=== PATIENT | male | born 1980 | race Caucasian/White ===

== ENCOUNTER 2024-12-05 23:40 | Emergency (ER) | payer BC, SELFPAY ==
--- NOTE | 2024-12-05 | ECG_ITS ---
Test Reason : L UPPER BACK PAIN Blood Pressure : */* mmHG Vent. Rate : 78 BPM Atrial Rate : 78 BPM P-R Int : 154 ms QRS Dur : 100 ms QT Int : 366 ms P-R-T Axes : 34 12 37 degrees QTcB Int : 417 ms Normal sinus rhythm Normal ECG No previous ECGs available Referred By: Generic ED Physician Electronically Signed By: KEL PEMBERTON
[2024-12-05 23:41] VITALS: BP 163/91; PULSE 86; RESP 18; TEMP 36.9; O2SAT 96; BMI 46.4
[2024-12-06 00:08] LABS: MANUAL DIFF FLAG NO
[2024-12-06 00:18] LABS: Basophils Absolute Auto 0.1 X10*3/uL (0.0-0.2); Basophils Percent Auto 0.9 % (0-2); Eosinophils Absolute Auto 0.7 X10*3/uL (0.0-0.4); Eosinophils Percent Auto 6.3 % (0-4); Hematocrit 48.1 % (42.0-52.0); Hemoglobin 16.1 g/dl (14.0-18.0); Imm Gran Abs Auto 0.07 X10*3/uL (0.00-0.03); Imm Gran Pct Auto 0.7 % (0.0-0.4); Lymphocytes Absolute Auto 3.3 X10*3/uL (1.2-4.9); Lymphocytes Percent Auto 31.7 % (20-40); Mean Corpuscular HGB Conc 33.5 g/dl (31.0-36.0); Mean Corpuscular Hemoglobin 28.1 pg (27.0-33.0); Mean Corpuscular Volume 84.1 fL (80.0-98.0); Mean Platelet Volume 11.3 fL (9.4-12.4); Monocytes Absolute Auto 0.8 X10*3/uL (0.1-1.2); Monocytes Percent Auto 7.5 % (2-11); Neutrophils Absolute Auto 5.5 x10*3/uL (2.0-8.3); Neutrophils Percent Auto 52.9 % (45-73); Platelet Count 223 X10*3/uL (160-400); Red Blood Count 5.72 X10*6/uL (4.60-5.80); Red Cell Distribution Width 14.4 % (11.0-16.0); White Blood Count 10.3 X10*3/uL (4.8-10.8)
[2024-12-06 00:25] LABS: Alanine Aminotransferase 43 U/L (0-40); Albumin Level 4.1 g/dL (3.5-5.0); Alkaline Phosphatase 74 U/L (39-117); Anion Gap 13 (12-20); Aspartate Amino Transferase 25 U/L (5-37); Bilirubin Total 0.3 mg/dL (0.0-1.0); Blood Urea Nitrogen 14 mg/dL (9-16); Calcium 9.5 mg/dL (8.4-10.2); Carbon Dioxide 27 mmol/L (22-29); Chloride 105 mmol/L (96-108); Creatinine Clr Calc Pharmacy 136.6; Estimated Glomerular Filt Rate > 60; Glucose Random 166 mg/dL (60-115); Potassium 4.1 mmol/L (3.3-5.1); Sodium 141 mmol/L (135-145); Total Protein 7.1 g/dL (6.5-8.0)
[2024-12-06 00:32] LABS: Troponin-I High Sensitivity < 2.7 ng/L (<3.5-35.0)
--- NOTE | 2024-12-06 02:11 | ED.BACK ---
HPI - Back Pain/Injury General Chief Complaint: Back Pain/Injury Stated Complaint: pinch nerve back ? Time Seen by Provider: 12/06/24 02:04 Source: patient Mode of arrival: ambulatory Limitations: no limitations History of Present Illness ED Provider: HPI Narrative: Patient has been having back pain for last few days says that was lifting heavy stuff on at work pain is mostly in the paralumbar area no radiation of the pain no tingling sensation Related Data Previous Rx's ?Medication ?Instructions ?Recorded cyclobenzaprine 10 mg tablet 10 mg PO Q8H #20 tabs 12/06/24 meloxicam 7.5 mg tablet 7.5 mg PO DAILY #20 tabs 12/06/24 tramadol 50 mg tablet 50 mg PO Q6H PRN pain #20 tabs 12/06/24 Allergies Allergy/AdvReac Type Severity Reaction Status Date / Time amoxicillin [AMOXICILLIN] Allergy Unknown HIVES Verified 12/05/24 23:47 Review of Systems Review of Systems: Yes all other systems are reviewed and are negative [facility] Social History Social History Advance Directives: No Advance Directives Information Provided: No Do you have a plan to hurt others: No Plan Physical Exam Vital Signs: Vital Signs: Last Vital Signs Temp 98.6 F 12/06/24 02:57 Pulse 74 12/06/24 02:57 Resp 17 12/06/24 02:57 BP 132/79 12/06/24 02:57 Pulse Ox 99 12/06/24 02:57 O2 Del Method Room Air 12/06/24 02:57 BMI result Body Mass Index 46.4 Appearance: Alert. Oriented X3. No acute distress. ENT: Pharynx normal. Oral Mucosa moist Neck: Normal inspection. Neck supple. CVS: Normal heart rate and rhythm. Pulses normal. Respiratory: No respiratory distress. Equal air entry bilateral, no wheezing/rales/rhonchi Abdomen: Soft and nontender. Bowel sounds are present, no mass palpable, no CVA tenderness Skin: Skin warm and dry. Normal skin color. Normal skin turgor. Extremities: No lower extremity edema. No calf tenderness Back: Diffuse tenderness patient is in the left side paralumbar area loss of the thoracic spine area SLR negative bilaterally Neuro: Oriented X 3. No motor deficit. Medications Administered Discontinued Medications Generic Name Dose Route Start Last Admin Trade Name Rigo PRN Reason Stop Dose Admin Cyclobenzaprine HCl 10 mg 12/06/24 02:27 12/06/24 02:51 Cyclobenzaprine Hcl 10 Mg Tablet PO 12/06/24 02:28 10 mg ONCE ONE Administration Morphine Sulfate 15 mg 12/06/24 02:27 12/06/24 02:51 Morphine Sulfate Immed Release 15 Mg Tablet PO 12/06/24 02:28 15 mg ONCE ONE Administration Medical Decision Making Medical Decision Making MDM Narrative: Patient's lower back strain will prescribe muscle relaxant and pain medication no signs of spinal cord involvement Lab Data 12/06/24 00:02 12/06/24 00:02 Labs: Lab Results 12/06/24 Range/Units 00:02 WBC 10.3 (4.8-10.8) X10*3/uL RBC 5.72 (4.60-5.80) X10*6/uL Hgb 16.1 (14.0-18.0) g/dl Hct 48.1 (42.0-52.0) % MCV 84.1 (80.0-98.0) fL MCH 28.1 (27.0-33.0) pg MCHC 33.5 (31.0-36.0) g/dl RDW 14.4 (11.0-16.0) % Plt Count 223 (160-400) X10*3/uL MPV 11.3 (9.4-12.4) fL Immature Gran % (Auto) 0.7 H (0.0-0.4) % Neut % (Auto) 52.9 (45-73) % Lymph % (Auto) 31.7 (20-40) % Crosby % (Auto) 7.5 (2-11) % Eos % (Auto) 6.3 H (0-4) % Baso % (Auto) 0.9 (0-2) % Lymph # (Auto) 3.3 (1.2-4.9) X10*3/uL Crosby # (Auto) 0.8 (0.1-1.2) X10*3/uL Eos # (Auto) 0.7 H (0.0-0.4) X10*3/uL Baso # (Auto) 0.1 (0.0-0.2) X10*3/uL Abs Immat Gran (auto) 0.07 H (0.00-0.03) X10*3/uL Absolute Neuts (auto) 5.5 (2.0-8.3) x10*3/uL Absolute Nucleated RBC 0.000 (0.0-0.012) X10*3/uL Nucleated RBC % (auto) 0.0 (0.0-0.2) /100WBC Sodium 141 (135-145) mmol/L Potassium 4.1 (3.3-5.1) mmol/L Chloride 105 (96-108) mmol/L Carbon Dioxide 27 (22-29) mmol/L Anion Gap 13 (12-20) BUN 14 (9-16) mg/dL Creatinine 0.94 (0.5-1.4) mg/dL Estim Creat Clear Calc 136.6 Estimated GFR > 60 Random Glucose 166 H (60-115) mg/dL Calcium 9.5 (8.4-10.2) mg/dL Total Bilirubin 0.3 (0.0-1.0) mg/dL AST 25 (5-37) U/L ALT 43 H (0-40) U/L Alkaline Phosphatase 74 (39-117) U/L Troponin I High Sens < 2.7 (<3.5-35.0) ng/L Total Protein 7.1 (6.5-8.0) g/dL Albumin 4.1 (3.5-5.0) g/dL Discharge Plan Discharge Clinical Impression: Strain of lumbar region Patient Disposition: Home, Self-Care Instructions: Back Pain (ED) Additional Instructions: Rest take pain medication muscle relaxant as advised Oxycodone for severe pain Prescriptions: New cyclobenzaprine 10 mg tablet 10 mg PO Q8H Qty: 20 0RF meloxicam 7.5 mg tablet 7.5 mg PO DAILY Qty: 20 0RF tramadol 50 mg tablet 50 mg PO Q6H PRN (Reason: pain) Qty: 20 0RF Stand Alone Forms: Work/School Release Interventions: ED Discharge Assessment Last Done: 12/06/24 02:57 Discharge Date/Time: 12/06/24 02:58 Print Language: [place]
[2024-12-06] MEDS: Morphine Sulfate Immed Release 15 MG TABLET PO (02:51)
[2024-12-06] MEDS: Cyclobenzaprine HCl 10 MG TABLET PO (02:51)
[2024-12-06 02:55] VITALS: BP 132/79; PULSE 74; RESP 17; TEMP 37; O2SAT 99
[2024-12-06 02:57] VITALS: BP 132/79; PULSE 74; RESP 17; TEMP 37; O2SAT 99
== END 2024-12-06 02:58 | disposition home or self-care (01) ==
PROVIDERS: Emergency Provider Internal Medicine; PCP Internal Medicine Sports Medicine
DX: S39.012A Strain of muscle, fascia and tendon of lower back, initial encounter (principal); X50.0XXA Overexertion from strenuous movement or load, initial encounter; Y93.89 Activity, other specified; Y92.512 Supermarket, store or market as the place of occurrence of the external cause; Y99.9 Unspecified external cause status; Z79.899 Other long term (current) drug therapy
CPT/HCPCS: 36415; 80053; 84484; 85025; 93005; 99283; 99284

== ENCOUNTER → 2024-12-05 23:54 | Outpatient (BNV) | payer BC, SELFPAY | PROVIDERS: Emergency Provider Internal Medicine; PCP Internal Medicine Sports Medicine; Visit Provider Internal Medicine | DX: M54.6 Pain in thoracic spine (principal) | CPT/HCPCS: 93010 ==